=== PATIENT | female | born 2005 | race Hispanic/Latino ===

== ENCOUNTER 2024-07-03 20:15 | Emergency (ER) | payer SELFPAY ==
[~2024-07-03] VITALS: Ht 157.5 cm; Wt 68.0 kg
[2024-07-03 20:48] LABS: BASOPHILS # (AUTO) 0.03 K/uL (0.00-0.20); BASOPHILS % (AUTO) 0.3 % (0.0-5.0); EOSINOPHILS # (AUTO) 0.05 K/uL (0.00-0.70); EOSINOPHILS % (AUTO) 0.5 % (0.0-8.0); IMMATURE GRANULOCYTE ABSOLUTE 0.03 K/uL (0-1); LYMPHOCYTES # (AUTO) 1.7 K/uL (1.0-4.8); LYMPHOCYTES % (AUTO) 16.8 % (21.0-51.0); MEAN CORPUSCULAR HEMOGLOBIN 30.5 pg (27.0-33.0); MEAN CORPUSCULAR HGB CONC 34.9 g/dL (32.0-36.0); MEAN CORPUSCULAR VOLUME 87.4 fL (80-100); MONOCYTES # (AUTO) 0.9 K/uL (0.1-1.0); MONOCYTES % (AUTO) 8.4 % (3.0-13.0); NEUTROPHILS # (AUTO) 7.6 K/uL (1.8-7.7); NEUTROPHILS % (AUTO) 73.7 % (40.0-77.0); PLATELET COUNT (AUTO) 209 K/uL (130-400); RED BLOOD CELL COUNT(AUTO) 4.46 MIL/uL (4.00-5.50); RED CELL DISTRIBUTION WIDTH 11.8 % (11.0-15.5); WHITE BLOOD COUNT (AUTO) 10.3 K/uL (4.8-10.8)
[2024-07-03] MEDS: ondanSETRON 4MG INJ IVP ONE (20:48)
[2024-07-03] MEDS: acetaMINOPHEN 500 MG TABLET PO ONE (20:49)
[2024-07-03] MEDS: 0.9%NACL 1000ML 1,000 ML IV ONE (20:50)
[2024-07-03 20:58] LABS: CREATININE 0.8 mg/dL (0.5-1.0); POTASSIUM 3.8 mmol/L (3.5-5.1)
[2024-07-03 21:04] VITALS: TEMP 98.5
[2024-07-03 22:07] LABS: APPEARANCE,URINE CLEAR (CLEAR); BILIRUBIN,URINE NEGATIVE (NEGATIVE); COLOR,URINE COLORLESS (YELLOW); GLUCOSE, URINE (UA) NEGATIVE (NEGATIVE); KETONES,URINE NEGATIVE (NEGATIVE); LEUKOCYTE ESTERASE ,URINE NEGATIVE Leu/uL (NEGATIVE); NITRATE,URINE NEGATIVE (NEGATIVE); OCCULT BLOOD,URINE LARGE (NEGATIVE); PROTEIN,URINE NEGATIVE (NEGATIVE); UROBILINOGEN,URINE 0.2 mg/dL (0.2-1.0)
[2024-07-03 22:09] LABS: ADD UA MICROSCOPIC YES
[2024-07-03 22:11] LABS: HCG,QUALITATIVE URINE NEGATIVE (NEGATIVE)
[2024-07-03 22:13] LABS: MUCUS,URINE RARE LPF (None Seen); RBC,URINE 0-1 /HPF (0-1); SQUAMOUS EPITHELIAL CELL,UR RARE /HPF (0-2)
[2024-07-03] MEDS: metoCLOPRAmide 10 MG/2 ML VIAL IVP ONE (23:05)
[2024-07-03] MEDS: DiphenhydrAMINE HCL 50 MG/ML VIAL IV ONE (23:05)
[2024-07-03] MEDS: mecliZINE HCL 25 MG TABLET PO ONE (23:07)
[2024-07-03] MEDS ORDERED: MECL-302 PO (23:54)
[2024-07-03] MEDS ORDERED: ONDA-243 PO (23:54)
[2024-07-03 23:57] VITALS: BP 115/65; PULSE 75; RESP 18; O2SAT 99
== END 2024-07-04 00:07 | disposition home or self-care (01) ==
LOC: EDH 20:15
DX: R51.9 Headache, unspecified (principal); R42 Dizziness and giddiness
CPT/HCPCS: 99284; 96374; 96375; 80048; 85025; 81001; 81025; 36415; 93005; J1200; J7030; J2405; J2765